=== PATIENT | female | born 1940 | race Caucasian/White ===

== ENCOUNTER 2017-03-28 11:28 | Emergency (ER) | payer MEDICARE, BC ==
[2017-03-28] MEDS: fentaNYL PF VIAL 100 MCG/2 ML VIAL IV ×4 (12:46→15:33)
[2017-03-28 13:51] LABS: BILIRUBIN,URINE SMALL (NEG); CLARITY,URINE CLEAR; GLUCOSE,URINE NEGATIVE (NEG); NITRITE,URINE NEGATIVE (NEG); PH,URINE 5.5; PROTEIN,URINE NEGATIVE (NEG-TRACE); UROBILINOGEN,URINE 0.2 mg/dL (0.2 mg/dL)
[2017-03-28 14:04] LABS: COLOR,URINE DK YELLOW
[2017-03-28 14:07] LABS: BACTERIA,URINE FEW /HPF (0-FEW); HYALINE CASTS, URINE MANY /HPF; RBC,URINE 0 /HPF (0-2); SQUAMOUS EPITHELIAL CELL,UR MOD /LPF
[2017-03-28] MEDS ORDERED: fentaNYL PF VIAL 100 MCG/2 ML VIAL IV (15:00)
[2017-03-28] MEDS ORDERED: MORPHINE SULFATE 2 MG/ML DISP.SYRIN. IV/SQ (15:15)
== END 2017-03-28 16:40 | disposition home or self-care (01) ==
LOC: ER 11:28
DX: M54.5 Low back pain (principal); E78.00 Pure hypercholesterolemia, unspecified; E03.9 Hypothyroidism, unspecified; I10 Essential (primary) hypertension; Z90.710 Acquired absence of both cervix and uterus; Z90.49 Acquired absence of other specified parts of digestive tract; Z88.2 Allergy status to sulfonamides; Z88.5 Allergy status to narcotic agent; Z88.8 Allergy status to other drugs, medicaments and biological substances; Z91.041 Radiographic dye allergy status
CPT/HCPCS: 72100; 72131; 72192; 73502; 81001; 87086; 96374; 96376; 99285-25; J3010

== ENCOUNTER 2017-10-03 11:28 | Emergency (ER) | payer MEDICARE, BC ==
[2017-10-03] MEDS: DIPHTH,PERTUSS(ACELL),TET TOX 0.5 ML DISP.SYRIN. VAX IM (12:31)
[2017-10-03] MEDS: ONDANSETRON ODT 4 MG TAB.RAPDIS. PO (12:51)
[2017-10-03] MEDS: HYDROcodone/APAP 5/325MG 1 TAB TABLET PO (13:16)
== END 2017-10-03 13:43 | disposition home or self-care (01) ==
LOC: ER 11:28
DX: S80.11XA Contusion of right lower leg, initial encounter (principal); E78.00 Pure hypercholesterolemia, unspecified; I10 Essential (primary) hypertension; E03.9 Hypothyroidism, unspecified; K21.9 Gastro-esophageal reflux disease without esophagitis; Z88.2 Allergy status to sulfonamides; Z88.5 Allergy status to narcotic agent; Z88.8 Allergy status to other drugs, medicaments and biological substances; Z91.041 Radiographic dye allergy status; W18.39XA Other fall on same level, initial encounter; Y93.H2 Activity, gardening and landscaping; Y99.8 Other external cause status; Y92.096 Garden or yard of other non-institutional residence as the place of occurrence of the external cause
CPT/HCPCS: 73590; 90471; 90715; 99284-25; Q0162

== ENCOUNTER → 2019-05-01 | Outpatient (CLI) | payer MEDICARE, BC ==
[2017-10-03 13:42] VITALS: BP 139/68
[~2019-05-01] MED LIST: CYCL5TAB PO; HYDR-3164 PO; OXYC1TAB15 PO
--- NOTE | 2019-05-01 16:10 | KCIC ---
Bone mineral density exam History: Postmenopausal, history of adult fracture, osteoporosis Comparison: None Findings: Bone mineral density examination utilizing DEXA was performed. Left hip bone mineral density of 0.699 g/cm2 corresponds with a T score -2.0, Z score 0.1. The bone mineral density of the lumbar spine was 0.933 g/cm2 which corresponds with a T-score of -1.0, Z score 1.7. By [employer] on Osteoporosis criteria, a T score of 0 to-1 SD is considered to be within normal limits. A T score of -1 to -2.5 SD is considered osteopenia. A T score less than -2.5 SD is considered osteoporosis Impression: 1. There is osteopenia of the left hip. Mean bone mineral density lumbar spine is considered borderline normal and osteopenia although probably artificially elevated due to the presence of degenerative change, scoliosis also noted. Electronically signed by: Ruddy Hernandez MD (05/01/2019 4:07 PM) [id number]
== END | disposition home or self-care (01) ==
LOC: KCIC DEXA 13:53
PROVIDERS: ATTEND Internal Medicine
DX: M85.88 Other specified disorders of bone density and structure, other site (principal); M81.0 Age-related osteoporosis without current pathological fracture; M41.9 Scoliosis, unspecified; Z78.0 Asymptomatic menopausal state; Z87.311 Personal history of (healed) other pathological fracture
CPT/HCPCS: 77080